=== PATIENT | female | born 1975 | race American Indian/Alaskan Native ===

== ENCOUNTER 2020-11-29 12:00 | Emergency (ER) | payer SELFPAY ==
[2020-11-29 12:18] VITALS: BP 107/85
== END 2020-11-29 12:24 | disposition left against medical advice (07) ==
LOC: ED 12:00
DX: F10.239 Alcohol dependence with withdrawal, unspecified (principal); Z53.21 Procedure and treatment not carried out due to patient leaving prior to being seen by health care provider

== ENCOUNTER 2021-01-01 14:07 | Emergency (ER) | payer OTHER | END 2021-01-01 14:50 | disposition left against medical advice (07) | LOC: ED 14:07 ==

== ENCOUNTER 2021-08-02 07:38 | Day surgery (SDC) | payer OTHER ==
[2021-08-02 09:00] LABS: Basophils % (Auto) 0.5 % (0.0-1.8); Eosinophils % (Auto) 0.8 % (0.0-4.3); Hemoglobin 9.1 gm/dl (10.1-14.3); Lymphocytes # (Auto) 1.8 K/mm3 (1.2-5.4); Lymphocytes % (Auto) 39.4 % (13.4-35.0); Monocytes # (Auto) 0.4 K/mm3 (0.0-0.8); Monocytes % (Auto) 8.1 % (0.0-7.3)
[2021-08-02] MEDS ORDERED: HEPARIN/NS 5000 UNIT/500ML 1,000 ML IR ONE (09:11)
[2021-08-02] MEDS ORDERED: VERAPAMIL 5 MG/2 ML INJ ONE (09:12)
[2021-08-02] MEDS ORDERED: HEPARIN 10,000 UNITS/10 ML VIAL ONE (09:12)
[2021-08-02] MEDS ORDERED: LIDOCAINE (2%) 20 MG/1 ML VIAL 20 ML MDV INFILTRATI ONE (09:12)
[2021-08-02] MEDS ORDERED: MIDAZOLAM 2 MG/2 ML INJ ONE (09:12)
[2021-08-02] MEDS ORDERED: NITROGLYCERIN SYRINGE 3 ML ONE (09:12)
[2021-08-02 09:24] LABS: BUN/Creatinine Ratio 10; Blood Urea Nitrogen 8 mg/dL (7-17); Hemolysis Index 0
[2021-08-02] MEDS: SODIUM CHLORIDE 0.9% 500 ML 500 ML IV SCH ×2 (09:26→10:14)
[2021-08-02 09:49] LABS: Hematocrit 29.7 % (30.3-42.9); Mean Corpuscular HGB Conc 31 % (30-34); Mean Corpuscular Volume 77 fl (79-97); Platelet Count 461 K/mm3 (140-440); Red Blood Count 3.85 M/mm3 (3.65-5.03); Red Cell Distribution Width 17.6 % (13.2-15.2)
[2021-08-02] MEDS ORDERED: SODIUM CHLORIDE 0.9% 1000 ML 1,000 ML IV SCH (10:45)
--- NOTE | 2021-08-02 10:49 | Discharge Summary ---
Short Stay Discharge Plan Activity: advance as tolerated Weight Bearing Status: Full Weight Bearing Diet: low fat, low cholesterol, low salt Wound: keep clean and dry Special Instructions: no heavy lifting (3 days) Follow up with: PRIMARY MD MILAD [Primary Care Provider] - 7 Days JAY RENE MD [Staff Physician] - 7 Days
[2021-08-02] MEDS ORDERED: ACETAMINOPHEN 325 MG TAB PO PRN (11:00)
--- NOTE | 2021-08-02 11:00 | Cardiac Catherization Report ---
DATE OF SERVICE: 08/02/2021 CARDIAC CATHETERIZATION REPORT REASON FOR PROCEDURE: The patient is a 46-year-old woman who presented with continued, atypical chest pain despite negative non-invasive testing. Due to recurrent and unrelenting chest pain, she was referred for a cardiac catheterization. Risks and benefits of the procedure were discussed with the patient and she consented to the procedure. PROCEDURES: 1. Left heart catheterization. 2. Selective left and right coronary angiography. 3. Left ventricular angiography. 4. Sedation time start and end. DESCRIPTION OF PROCEDURE: The patient was prepped and draped in a sterile fashion after informed consent. Due to her professed ALLERGY TO FENTANYL, she was sedated with Versed 1 mg IV. The right radial cath site was then prepped and draped after negative Wilman's test. Right radial artery was entered using the Seldinger technique followed by placement of a 6-English hydrophilic sheath. Routine radial cocktail was administered via the sheath. Selective left and right coronary angiography was performed. We obtained optimal right coronary angiography using the left Shon 3.5 catheter. The left coronary angiography was then performed using a #3.0 left Shon catheter. A pigtail catheter was then used for left ventricle angiography. The catheters were then removed, sheath removed and hemostasis achieved using a TR band. The patient was returned to the postprocedure unit in stable condition. There were no complications. FINDINGS: HEMODYNAMICS: Left ventricular end-diastolic pressure was 10. Ascending aortic pressure was 112/92. There was no significant pressure gradient on pullback across the aortic valve. CORONARY ANGIOGRAPHY: Left main coronary artery was angiographically normal. Left anterior descending artery and its diagonal branches were angiographically normal. A large ramus intermedius artery was angiographically normal. The circumflex artery and its obtuse marginal branches were angiographically normal. The right coronary artery was a large, dominant vessel, also angiographically normal. Left ventricular systolic function was at lower limits of normal with estimated ejection fraction 50-55% following a series of extrasystolic beats. CONCLUSIONS: 1. Angiographically normal coronary arteries. 2. Left ventricular systolic function at the lower limits of normal, estimated ejection fraction 50%. RECOMMENDATIONS: Risk factor modification and medical therapy. TID: [id number] RECEIPT: [id number] [facility]
[2021-08-02 13:10] VITALS: BP 111/63
--- NOTE | 2021-08-04 10:14 | Electrocardiograph Report ---
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
== END 2021-08-02 13:45 | disposition home or self-care (01) ==
LOC: CATHLABREC 07:38
PROVIDERS: ATTEND Internal Medicine Cardiovascular Disease
DX: R07.9 Chest pain, unspecified (principal); K21.9 Gastro-esophageal reflux disease without esophagitis; M10.9 Gout, unspecified; F41.9 Anxiety disorder, unspecified; F32.9 Major depressive disorder, single episode, unspecified; Z87.440 Personal history of urinary (tract) infections; Z79.82 Long term (current) use of aspirin; Z79.899 Other long term (current) drug therapy; Z98.890 Other specified postprocedural states; Z88.5 Allergy status to narcotic agent; Z88.6 Allergy status to analgesic agent; Z88.8 Allergy status to other drugs, medicaments and biological substances
CPT/HCPCS: 36415; 80048; 85025; 85610; 85730; 93005; 93458; C1894; J1644; J1815; J2250; J3490; J7040; Q9967